=== PATIENT | female | born 1945 | race Caucasian/White ===

== ENCOUNTER 2016-12-10 11:21 | Emergency (ER) | payer OTHER ==
[~2016-12-10] VITALS: Ht 162.6 cm; Wt 85.0 kg
[2016-12-10 11:21] VITALS: Ht 162.6 cm; Wt 85.0 kg
--- NOTE | 2016-12-10 11:23 | ERA ---
ER Documentation Chief Complaint Date/Time DATE: 12/10/16 TIME: 11:23 Chief Complaint Palpitation HPI The patient is a 70-year-old female, presenting to the ER because of acute onset of palpitation prior to arrival. When the EMS arrived, EKG was done at 10 :38 AM showed SVT at 118 bpm. She was then treated with adenosine 6 mg IV by converted the arrhythmia. Repeat EKG at 10:47 AM showed sinus tachycardia at 107 bpm. On arrival to the ER, she feels well and denies any symptoms. She denies similar symptoms previously, denies headache, syncope, near syncope, neck pain, chest pain, dyspnea, abdominal pain, vomiting, dysuria, diarrhea. She does not smoke nor drink Past medical history: Hypertension, dyslipidemia Past surgical history: Cholecystectomy ROS All systems reviewed and are negative except as per history of present illness. Medications Home Meds Reported Medications Calcium Carbonate/Vitamin D3 (OYSTER SHELL 500 MG + VIT D TB) 1 Each Tablet, 1 EACH PO DAILY, TAB 12/10/16 Alendronate Sodium* (Fosamax*) 70 Mg Tablet, 70 MG PO Q7D, #4 TAB 12/10/16 Enhrls-Vediefhl-Iwgtzxx* (Leilani ROSARIO* 12,000) 12,000 L-38,000-60,000 Unit Capsule.dr, 1 CAP PO BID WITH MEALS, CAP 12/10/16 Atorvastatin Calcium* (Atorvastatin Calcium*) 20 Mg Tablet, 20 MG PO QHS, #30 TAB 12/10/16 Omeprazole* (Omeprazole*) 20 Mg Capsule.dr, 20 MG PO DAILY, #30 CAP 12/10/16 Dicyclomine Hcl* (Bentyl*) 10 Mg Capsule, 10 MG PO BID, CAP 12/10/16 Ibuprofen* (Motrin*) 600 Mg Tab, 600 MG PO BID Y for PAIN, TAB 12/10/16 Aspirin (Low Dose Aspirin) 81 Mg Tablet.dr, 81 MG PO DAILY, #30 TAB 12/10/16 Atenolol* (Atenolol*) 25 Mg Tablet, 25 MG PO DAILY, #30 TAB 12/10/16 Cholecalciferol* (Vitamin D3*) 1,000 Unit Tablet, 2000 UNIT PO DAILY, TAB 12/10/16 Meclizine Hcl* (Meclizine Hcl*) 25 Mg Tablet, 25 MG PO BID, TAB 12/10/16 Bisacodyl* (Bisacodyl*) 5 Mg Tablet.dr, 5 MG PO BID Y for CONSTIPATION, TAB 12/10/16 Zaleplon (Zaleplon) 10 Mg Capsule, 10 MG PO HS Y for INSOMNIA, CAP 12/10/16 Clonazepam* (Clonazepam*) 0.5 Mg Tablet, 0.5 MG PO BID Y for ANXIETY, TAB 12/10/16 Duloxetine Hcl* (Duloxetine Hcl*) 30 Mg Capsule.dr, 30 MG PO DAILY, #30 CAP 12/10/16 Diclofenac Sodium* (Voltaren* Gel) 1% -100 Gm Gel, 2 GM TOP TID, #1 TUB 12/10/16 Niacin (Niacin* ER) 500 Mg Tab.er.24h, 250 MG PO AC MEALS, TAB.SA 12/10/16 Gabapentin* (Gabapentin*) 100 Mg Capsule, 100 MG PO BID, #90 CAP 12/10/16 Allergies Allergies: Coded Allergies: No Known Allergy (Unverified , 12/10/16) Physical Exam Vitals Vital Signs Date Time Temp Pulse Resp B/P Pulse Ox O2 Delivery O2 Flow Rate FiO2 12/10/16 14:00 98.3 76 20 125/84 98 Nasal Cannula 2.0 12/10/16 12:18 Nasal Cannula 12/10/16 12:00 98.3 78 20 138/85 98 Room Air 12/10/16 11:36 Nasal Cannula 2 12/10/16 11:21 97.9 87 20 135/85 97 Physical Exam Const: No acute distress. Head: Atraumatic. Eyes: Normal Conjunctiva. ENT: Normal External Ears, Nose and Mouth. Neck: Full range of motion. No meningismus. Resp: Clear to auscultation bilaterally. Cardio: Regular rate and rhythm, no murmurs. Abd: Soft, non distended, normal bowel sounds, non tender. Skin: No petechiae or rashes. Back: No midline or flank tenderness. Ext: No cyanosis, or edema. Neur: Awake and alert. No focal deficit Psych: Normal Mood and Affect. Result Diagram: 12/10/16 1155 12/10/16 1155 Results 24 hrs Laboratory Tests Test 12/10/16 11:55 White Blood Count 10.910^3/ul Red Blood Count 3.8610^6/ul Hemoglobin 11.7g/dl Hematocrit 35.0% Mean Corpuscular Volume 90.7fl Mean Corpuscular Hemoglobin 30.3pg Mean Corpuscular Hemoglobin Concent 33.4g/dl Red Cell Distribution Width 12.7% Platelet Count 72573^3/UL Mean Platelet Volume 11.2fl Neutrophils % 72.1% Lymphocytes % 20.1% Monocytes % 6.4% Eosinophils % 0.6% Basophils % 0.5% Nucleated Red Blood Cells % 0.0/100WBC Neutrophils # 7.910^3/ul Lymphocytes # 2.210^3/ul Monocytes # 0.710^3/ul Eosinophils # 0.110^3/ul Basophils # 0.110^3/ul Nucleated Red Blood Cells # 0.010^3/ul Prothrombin Time 12.7Sec Prothrombin Time Ratio 1.0 INR International Normalized Ratio 0.95 Activated Partial Thromboplast Time 25.6Sec Sodium Level 137mmol/L Potassium Level 3.7mmol/L Chloride Level 106mmol/L Carbon Dioxide Level 25mmol/L Anion Gap 10 Blood Urea Nitrogen 16mg/dl Creatinine 0.59mg/dl Glucose Level 135mg/dl Calcium Level 8.5mg/dl Magnesium Level 1.8mg/dl Troponin I < 0.012ng/ml Thyroid Stimulating Hormone (TSH) 3.180MIU/L Procedures/[place] [id number] Radiology Main Line: [phone] DIAGNOSTIC IMAGING REPORT Patient: KELLEN SOMMERS : 1945 Age: 70 Sex: F [id number] DOS: 12/10/16 1126 Ordering MD: KRIS COFFMAN MD Location: E/R Room/Bed: PROCEDURE: XR Chest. CLINICAL INDICATION: Chest pain TECHNIQUE: Chest AP portable COMPARISON: None available FINDINGS: The mediastinal structures are unremarkable. There is calcification of the thoracic aorta (consistent with atherosclerosis). The heart is normal in size and configuration. The pulmonary vascularity is normal. The lung qureshi are unremarkable. No consolidation is identified. The pleural spaces are unremarkable. The osseous structures are unremarkable. IMPRESSION: Calcification of the thoracic aorta (consistent with atherosclerosis). No evidence for active cardiopulmonary disease. RPTAT: HGDB .Carlos Enrique Banks MD, MD Date Time Electronically viewed and signed by .Carlos Enrique Banks MD, MD on 12/10/2016 13:17 .B/ CC: KRIS COFFMAN MD EKG: Read by emergency physician Rate/Rhythm: Normal Sinus Rhythm 86 beats/min QRS, ST, T-waves: No ST elevation, no T inversion, low voltage QRS Impression: Abnormal EKG MEDICAL MAKING DECISION: The patient is a 70-year-old female, presenting with acute new onset SVT. She remains well in the emergency department. The differential diagnoses considered include but are not limited to acute coronary syndrome, acute myocardial infarction, pericarditis, pulmonary embolism, aortic dissection, pneumonia, pleural effusion, pneumothorax, GERD, chest wall pain. Departure Diagnosis: Primary Impression: Supraventricular tachycardia Additional Impression: Anemia Condition: Stable Comments I discussed the findings with the patient. I discussed the patient with the IPA physician Dr Medina who was made aware of the lab, the treatment, the patient condition. The patient is transferred to [facility] at 2 PM via ambulance KRIS COFFMAN MD Dec 10, 2016 11:23
[2016-12-10 12:09] LABS: ADD SCAN DIFF NO
[2016-12-10 12:14] LABS: BASOPHIL # 0.1 10^3/ul (0.0-0.1); BASOPHILS % 0.5 % (0.0-2.0); EOSINOPHILS # 0.1 10^3/ul (0.0-0.5); EOSINOPHILS % 0.6 % (0.0-7.0); HEMOGLOBIN 11.7 g/dl (12.0-16.0); LYMPHOCYTES # 2.2 10^3/ul (0.8-2.9); LYMPHOCYTES % 20.1 % (15.0-51.0); MEAN CORPUSCULAR HEMOGLOBIN 30.3 pg (29.0-33.0); MEAN CORPUSCULAR HGB CONC 33.4 g/dl (32.0-37.0); MEAN CORPUSCULAR VOLUME 90.7 fl (82.0-101.0); MEAN PLATELET VOLUME 11.2 fl (7.4-10.4); MONOCYTE # 0.7 10^3/ul (0.3-0.9); MONOCYTES % 6.4 % (0.0-11.0); NEUTROPHIL # 7.9 10^3/ul (1.6-7.5); NEUTROPHILS % 72.1 % (39.0-77.0); PLATELET COUNT 195 10^3/UL (140-415); RED BLOOD COUNT 3.86 10^6/ul (4.20-5.40); RED CELL DISTRIBUTION WIDTH 12.7 % (11.5-14.5); WHITE BLOOD COUNT 10.9 10^3/ul (4.8-10.8)
[2016-12-10 12:24] LABS: CHLORIDE 106 mmol/L (97-110); POTASSIUM 3.7 mmol/L (3.5-5.1); SODIUM 137 mmol/L (135-144)
[2016-12-10 12:27] LABS: ANION GAP 10 (8-16); BLOOD UREA NITROGEN 16 mg/dl (7-20); CALCIUM 8.5 mg/dl (8.4-10.2); CARBON DIOXIDE 25 mmol/L (21-31); CREATININE 0.59 mg/dl (0.44-1.00); GLUCOSE 135 mg/dl (70-220)
[2016-12-10 12:28] LABS: MAGNESIUM 1.8 mg/dl (1.7-2.5)
[2016-12-10 12:43] LABS: TROPONIN-I < 0.012 ng/ml (0.00-0.12)
[2016-12-10 12:55] LABS: INR 0.95; PARTIAL THROMBOPLASTIN TIME 25.6 Sec (25.0-35.0); PROTIME 12.7 Sec (12.2-14.2)
--- NOTE | 2016-12-10 13:18 | RADRPT ---
PROCEDURE: XR Chest. CLINICAL INDICATION: Chest pain TECHNIQUE: Chest AP portable COMPARISON: None available FINDINGS: The mediastinal structures are unremarkable. There is calcification of the thoracic aorta (consiste nt with atherosclerosis). The heart is normal in size and configuration. The pulmonary vascularity is normal. The lung qureshi are unremarkable. No consolidation is identified. The pleural spaces are unremarkable. The osseous structures are unremarkable. IMPRESSION: Calcification of the thoracic aorta (consistent with atherosclerosis). No evidence for active cardiopulmonary disease. RPTAT: HGDB .Carlos Enrique Banks MD, Date Time Electronically viewed and signed by .Carlos Enrique Banks MD, on 12/10/2016 13:17 .B/
[2016-12-10] MEDS ORDERED: GABA100C14 PO (13:28)
[2016-12-10] MEDS ORDERED: NIAC500T92 PO (13:29)
[2016-12-10] MEDS ORDERED: DICL100G37 TOP (13:30)
[2016-12-10] MEDS ORDERED: DULO30CA47 PO (13:30)
[2016-12-10] MEDS ORDERED: ZALE10CA PO (13:31)
[2016-12-10] MEDS ORDERED: CLON0.5T4 PO (13:31)
[2016-12-10] MEDS ORDERED: BISA5TAB6 PO (13:32)
[2016-12-10] MEDS ORDERED: ATEN-51 PO (13:33)
[2016-12-10] MEDS ORDERED: MECL-77 PO (13:33)
[2016-12-10] MEDS ORDERED: CHOL100062 PO (13:33)
[2016-12-10] MEDS ORDERED: ASPI-664 PO (13:34)
[2016-12-10] MEDS ORDERED: DICY10CA60 PO (13:35)
[2016-12-10] MEDS ORDERED: IBUP-1542 PO (13:35)
[2016-12-10] MEDS ORDERED: ATOR20TA38 PO (13:36)
[2016-12-10] MEDS ORDERED: OMEP20CA16 PO (13:36)
[2016-12-10] MEDS ORDERED: ALEN70TA30 PO (13:37)
[2016-12-10] MEDS ORDERED: CALC-277 PO (13:37)
[2016-12-10] MEDS ORDERED: LIPA1CAP4 PO (13:37)
[2016-12-10 15:30] VITALS: TEMP 98.4
[2016-12-10 18:01] VITALS: BP 124/80; PULSE 94; RESP 16
== END 2016-12-10 18:02 | disposition short-term general hospital (02) ==
LOC: E/R 11:21
DX: I47.1 Supraventricular tachycardia (principal); R40.2252 Coma scale, best verbal response, oriented, at arrival to emergency department; D64.9 Anemia, unspecified; I10 Essential (primary) hypertension; R40.2362 Coma scale, best motor response, obeys commands, at arrival to emergency department; R40.2142 Coma scale, eyes open, spontaneous, at arrival to emergency department; R07.9 Chest pain, unspecified; Z79.82 Long term (current) use of aspirin
CPT/HCPCS: 36415; 71010; 80048; 83735; 84443; 84484; 85025; 85610; 85730; 93005